=== PATIENT | male | born 1935 | race Caucasian/White ===

== ENCOUNTER → 2017-04-08 | Outpatient (CLI) | payer OTHER, BC ==
[~2017-04-08] VITALS: Ht 188 cm; Wt 100.7 kg
[~2017-04-08] MED LIST: ADVAIR HFA115 MCG/21 INH; AMIODARONE HCL100 MG PO; APAP500 PO; ASPIRIN81 M2 PO; ATORVASTATIN CA40 MG PO; CAPOTEN 25MG TA25 MG PO; CARVEDILOL25 MG PO; CELEBREX 200 M200 MG PO; CITRACAL SOFT1 EACH PO; COREG25 MG PO; COUMADIN 5 MG TA5 M1 PO; CRESTOR10 MG PO; DILTIAZEM 24HR240 M2 PO; FOLIC ACID1 MG PO; HYDROCODON-ACE1 EAC5 PO; KEPPRA250 MG PO; KLOR-CON 1010 MEQ PO; LASIX 20 MG TAB20 MG PO; MIRALAX17 GM PO; NABUMETONE 500500 M1 PO; NORCO 10-325 T1 EACH PO; NORCO 5-325 TA1 EACH PO; PLAVIX 75 MG TA75 M1 PO; PRESERVISION T1 EACH PO; PRILOSEC20 MG PO; SPIRIVA INH; SPIRONOLACTONE50 MG PO; TIMOLOL MA0.25 %/5 M OP; TRAMADOL 50 MG50 MG PO; VOLTAREN GEL 1100 G1 TOP; VYTORIN 10-201 EACH PO; VYTORIN 10-401 EACH PO
--- NOTE | ~2017-04-08 | HPC ---
[facility] [place] [address] PAIN MANAGEMENT CONSULTATION Name: HAHNTRIXIE HOWE Saba Room #: REG [facility] [id number] Admission: 04/08/17 Attend Phys: Jules Rocha DO Discharge: Date of : 34 Report #: [id number] THIS REPORT FOR: //name// CC: Mikey Rocha The patient is a very pleasant 81-year-old gentleman. He was seen in the pain clinic nearly 2 years ago, last contact was 07/14/2015. He has chronic lumbar stenosis with ongoing axial back pain. He had a prior MILD procedure back in September 2013 with really no efficacy. He had good relief with epidural injections in the past. He had an epidural injection in [place] with really no efficacy since I last saw him. He returns to the pain clinic noting pain remains problematic, rates his pain 6-7 on a 0-10 visual analog scale, low back, right greater than left leg. Notes standing exacerbates pain. Describes constant sharp pain. PHYSICAL EXAMINATION: Shows pleasant 81-year-old gentleman, BMI is 28.5 kilograms per meter squared. Blood pressure 124/80, pulse 80s, respirations 18. Rises from chair using armrest. Has a moderately antalgic gait. Lumbar flexion exacerbates pain. Slight decreased strength to hip flexion bilaterally, right greater than left. Positive straight leg raise bilaterally. He has ecchymosis around his arms compatible with prior blood thinner use, he is now off of his prior Coumadin. He has had a Watchman device placed in the left atrial appendage. Medications were reconciled today, he continues with Spiriva inhaler, timolol optic drops, carvedilol 25 mg daily, daily aspirin, omeprazole, Lasix 40 mg with potassium supplement, Advair inhaler and p.r.n. hydrocodone fairly rare use. No recent diagnostic studies are available. Last MRI was in 2011, has central stenosis at L4-L5, neural foraminal stenosis, left greater than right at L5-S1, large disk at L5-S1. ASSESSMENT: Symptomatic lumbar radiculopathy secondary to spinal stenosis, history of cervical radiculopathy, history of atrial fibrillation, though currently on no blood thinner, status post implantation of a Watchman device in the left atrial appendage. RECOMMENDATIONS: Epidural injection under fluoroscopy today. Follow up in 4 weeks to evaluate efficacy of interventional therapy. I talked about medication use. The patient uses hydrocodone perhaps 3 times a week. We suggest we consider using tramadol for moderate pain along with Tylenol for mild pain. Continue with hydrocodone perhaps 3 times a week as prescribed [place] [address] PAIN MANAGEMENT CONSULTATION Name: TRIXIE HAHN Room #: REG CLNazia Wolfe#: [id number] Admission: 04/08/17 Attend Phys: Jules Rocha DO Discharge: Date of : 34 Report #: [id number] PROCEDURE: Lumbar epidural injection under fluoroscopy. PROCEDURE NOTE: After both written and informed consent to include risk of spinal cord damage, increased pain, weakness and dural puncture, the patient was taken to the fluoroscopy suite, placed in the prone position. After sterile prep and drape, a skin wheal with lidocaine was raised. A 22-gauge epidural Tuohy needle was inserted in the midline at L5-S1 with good loss to resistance. Negative aspiration for cerebrospinal fluid or blood was noted. Then 1 mL of Omnipaque under biplanar fluoroscopy showed good spread within the epidural space. This was followed with 80 mg of triamcinolone plus 1 mL of 1.5% preservative-free Xylocaine, 0.5 mL Xylocaine was then injected to flush the needle; it was removed. The patient was monitored for an appropriate period of time and discharged in good and stable condition. <ELECTRONICALLY SIGNED> By: Jules Rocha DO 04/13/17 0758 [id number] Jules Rocha DO /nt
[2017-04-08 13:00] VITALS: BP 124/80
== END ==
LOC: PAIN 07:07
DX: M54.16 Radiculopathy, lumbar region (principal); M48.06 Spinal stenosis, lumbar region; M54.12 Radiculopathy, cervical region; I48.91 Unspecified atrial fibrillation; Z87.891 Personal history of nicotine dependence

== ENCOUNTER → 2017-06-09 | Outpatient (CLI) | payer OTHER, BC ==
[~2017-06-09] VITALS: Ht 182.9 cm; Wt 101.2 kg
[~2017-06-09] MED LIST changes: +PERCOCET 7.5-31 EACH PO
[2017-06-09 13:49] VITALS: BP 118/66
== END | disposition home or self-care (01) ==
LOC: PAIN 06:50
DX: M54.16 Radiculopathy, lumbar region (principal); M48.06 Spinal stenosis, lumbar region; I25.10 Atherosclerotic heart disease of native coronary artery without angina pectoris; Z98.890 Other specified postprocedural states; I21.3 ST elevation (STEMI) myocardial infarction of unspecified site; Z68.30 Body mass index [BMI] 30.0-30.9, adult; Z87.891 Personal history of nicotine dependence

== ENCOUNTER → 2017-07-11 | Outpatient (CLI) | payer OTHER, BC ==
[~2017-07-11] VITALS: Ht 188 cm; Wt 101.8 kg
--- NOTE | ~2017-07-11 | HPC ---
[facility] [address] [place] [address] PAIN MANAGEMENT CONSULTATION Name: TRIXIE HAHN Room #: [facility] [id number] Admission: 07/11/17 Attend Phys: Jules Rocha DO Discharge: Date of : 34 Report #: [id number] THIS REPORT FOR: //name// CC: Mikey Rocha The patient is an 81-year-old gentleman typically treated for symptomatic lumbar radiculopathy, axial back pain, he is status post lumbar decompressive laminectomy (mild procedure) with multiple comorbidities including significant coronary artery disease. He was seen today for a prolonged visit from 11:09-11:35, greater than 50% of this 25+ minute visit was spent counseling the patient. Last visit 06/09/2017, he had been taking hydrocodone 10/325 one tablet up to 4 times a day with dwindling efficacy, we trialed an opiate rotation to Percocet 7.5/325. He notes this really has afforded absolutely no change and no functional improvement. The patient notes that he takes opiate medication on a nondaily basis, typically takes a single hydrocodone before he goes to play golf or does other physical activities, perhaps taking 3 or 4 a week. He tells me today he would prefer to have Dr. Ramsey continue to write for that medication as it is simply a little more efficient for him. He does see Dr. Ramsey for other ongoing medical issues. Today, I again spent a prolonged visit with the patient and Mrs. Hahn. I think that the patient may be having a little early cognitive decline. We talked about therapeutic options. Last visit, we had also discussed spinal cord stimulator as possible therapeutic option. He seems to be a little confused about this latter issue and again I spent a good deal of time explaining it to him. He notes his primary pain is in the mid back, right side greater than left buttock and occasionally posterior leg to thigh. While he notes the pain is anywhere from a 4-6 on VAS, it does seem to exacerbate with standing, walking, and exercise. To his credit, he does do home exercises as instructed by [facility] where he had been going on a regular basis for about 3 weeks. He tells me that he does remain physically active, states he has a wood shop in his basement, though he has trouble going up and down stairs. He states he did attempt to work on the ____ on his brick stairs. Unfortunately, when he was finishing this project, he was backing up with a wheelbarrow, fell striking his low back with acute exacerbation of tailbone pain. The patient denies bowel or bladder continence changes. Notes following the fall landing on his coccyx, he did have exacerbation of back pain, but still [address] [address] PAIN MANAGEMENT CONSULTATION Name: TRIXIE HAHN Room #: REG CLNazia Wolfe#: [id number] Admission: 07/11/17 Attend Phys: Jules Rocha DO Discharge: Date of : 34 Report #: [id number] remains functionally intact. PHYSICAL EXAMINATION: Shows an 81-year-old gentleman, BMI is 28.8 kg/m2. A little bit hard of hearing. Vital signs are stable as noted on the electronic medical record. Rises from chair using armrest. He has an antalgic gait. He uses a cane in his right hand primarily for balance. He has a moderately endomorphic build. He is able to bend forward to about 80 degrees without significant pain. Point palpation over the posterior spinous processes from about mid thoracic down to the sacrum elicits a little bit of pain in the L5 tailbone area, though not concordant with what I would expect with an acute compression fracture. Lower extremity strength is generally symmetric. 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 ASSESSMENT: Symptomatic lumbar radiculopathy status post a mild decompression I believe about 2 years ago, ongoing axial back pain, requiring complex medication management with comorbidities including coronary artery disease status post three endovascular stents and an ejection fraction of 30-33%. He does take amiodarone, carvedilol and a daily aspirin, he is on no other blood thinners. He has some pulmonary disease, is treated with Spiriva inhaler and Advair inhaler. Dyslipidemia for which he takes atorvastatin, gastroesophageal reflux for which he takes omeprazole. Discussed therapeutic options with the patient today. Again, routine use of nonsteroidal anti-inflammatory medications relatively contraindicated with coronary artery disease and some gastroesophageal reflux. Having failed conservative therapies, we again talked about spinal cord stimulator as a possible therapeutic option. He understands I will talk to a psychologist about expectations, adequate understanding of the device, reasonable expectations and lack of "secondary gain." The patient was given contact information for a psychologist regarding this required evaluation prior to considering a spinal cord stimulator. Lastly, we talked about moving forward with p.r.n. opiate analgesics. The patient would prefer to take hydrocodone 10/325, again he takes it on a nondaily basis. I offered to write a prescription for him today, but he stated he would rather have Dr. Ramsey write it for ongoing continuity of care. I will see him simply on an as needed basis. At this point really I do not think further therapeutic interventions including epidural injections are likely to afford significant relief. If he is desirous of moving forward with the spinal cord stimulator trial, he will have to talk to a psychologist for the aforementioned psychological evaluation required by most third republican payers including Medicare. If we get that psychological evaluation back, we will move forward with a [employer] spinal cord stimulator trial. Otherwise, again follow up [facility] [address] [place] [address] PAIN MANAGEMENT CONSULTATION Name: TRIXIE HAHN Room #: REG CLI [facility].#: [id number] Admission: 07/11/17 Attend Phys: Jules Rocha DO Discharge: Date of : 34 Report #: [id number] simply as needed. Thank you for allowing me to participate in the patient's care. By: 1214 1411 Jules Rocha DO /olegario
[2017-07-11 11:06] VITALS: BP 118/94
== END | disposition home or self-care (01) ==
LOC: PAIN 07:18
DX: Z76.0 Encounter for issue of repeat prescription (principal); G89.29 Other chronic pain; M54.16 Radiculopathy, lumbar region; M54.9 Dorsalgia, unspecified; I25.10 Atherosclerotic heart disease of native coronary artery without angina pectoris; E78.5 Hyperlipidemia, unspecified; K21.9 Gastro-esophageal reflux disease without esophagitis; Z95.5 Presence of coronary angioplasty implant and graft; Z79.82 Long term (current) use of aspirin; Z98.890 Other specified postprocedural states; Z79.899 Other long term (current) drug therapy; Z79.891 Long term (current) use of opiate analgesic; Z87.891 Personal history of nicotine dependence; Z88.8 Allergy status to other drugs, medicaments and biological substances; Z88.0 Allergy status to penicillin

== ENCOUNTER → 2018-05-01 | Outpatient (CLI) | payer OTHER, BC ==
[~2018-05-01] VITALS: Ht 188 cm; Wt 99.8 kg
[~2018-05-01] MED LIST changes: +FLOMAX0.4 MG PO
--- NOTE | ~2018-05-01 | HPC ---
[facility] [address] [place] [address] PAIN MANAGEMENT CONSULTATION Name: TRIXIE HAHN Room #: REG [facility] Yaneth#: [id number] Admission: 05/01/18 Attend Phys: Jules Rocha, DO Discharge: Date of : 34 Report #: [id number] THIS REPORT FOR: //name// CC: Beth Rocha The patient is a very pleasant 82-year-old gentleman seen back in June. He has ongoing lumbar radiculopathy status post lumbar decompression (MILD procedure). Multiple comorbidities including significant coronary artery disease. The patient has done well with occasional epidural injections, but has ultimately started to lose efficacy. Last epidural injection March of 2017 really did not afford adequate relief. He is loathe to take opiate analgesics, taking hydrocodone 10/325 three to four a day with dwindling efficacy. We rotated Percocet 7.5/325 with no functional status changes. He had a long discussion back in the fall about spinal cord stimulator. The patient was given print video literature regarding this therapeutic modality. [place] the [place] of [place]. Recently returned. He did get a psychological evaluation as required by most third democrat payers, he was seen by Dr. Hernandez Tabor PsyD, licensed clinical psychologist. He found no obvious psychological impediments this patient moving forward with spinal cord stimulator. He returns to pain clinic today. We had a prolonged visit about therapeutic options. He notes he can stand for perhaps 10 minutes, walk for about 5-6 minutes before pain becomes problematic. Pain is in the low back, bilateral legs, chronic constant sharp pain, rating anywhere from 2-7 on a VAS. He has not fallen in the last 3 months, but states his functional status is continuing to dwindle. He had the aforementioned MILD procedure 08/20/2013 with really no change in symptoms. DIAGNOSTIC STUDIES: Include MRI, now somewhat dated from 2011, but noting central stenosis at multiple levels, L5-S1 lateral disk protrusion. We talked about risks, benefits of spinal cord stimulator and proposed mechanism of action. Having failed all conservative therapies and loathe to increase opiate analgesics, and being a poor surgical candidate due to coronary artery disease for aggressive spinal surgery, the patient would like to look into a spinal cord stimulator. He does have a pacemaker and a defibrillator as well as a WATCHMAN. We will contact [employer] to ensure that there is no [facility] [address] [place] [address] PAIN MANAGEMENT CONSULTATION Name: SELMATRIXIE Saba Room #: REG CLNazia Wolfe#: [id number] Admission: 05/01/18 Attend Phys: Jules Rocha DO Discharge: Date of : 34 Report #: [id number] contraindication, but the patient would very much like to move forward with spinal cord stimulator trial at earliest possible date. The patient and his were seen for approximately 30 minutes. All questions were answered. We will plan on moving forward with spinal cord stimulator at earliest possible date. <ELECTRONICALLY SIGNED> By: Jules Rocha DO 05/03/18 0740 [id number] [id number] Jules Rocha DO /nt
[2018-05-01 14:08] VITALS: BP 109/69
== END ==
LOC: PAIN 07:05
DX: M54.16 Radiculopathy, lumbar region (principal); M96.1 Postlaminectomy syndrome, not elsewhere classified

== ENCOUNTER → 2018-05-11 | Outpatient (CLI) | payer OTHER, BC ==
[~2018-05-11] VITALS: Ht 188 cm; Wt 100.2 kg
--- NOTE | ~2018-05-11 | HPC ---
[facility] [address] [place] [address] PAIN MANAGEMENT CONSULTATION Name: TRIXIE HAHN Saba [facility] #: [facility] [id number] Admission: 05/11/18 Attend Phys: Jules Rocha DO Discharge: Date of : 34 Report #: [id number] THIS REPORT FOR: //name// CC: Beth Rocha The patient is a very pleasant 82-year-old gentleman being treated for chronic axial back pain, lumbar radiculopathy, status post MILD procedure. Comorbidity includes coronary artery disease. The patient has failed all conservative therapies. We ultimately elected to proceed with spinal cord stimulator lead trial today with a [employer] stimulator. Risks and benefits have been explained to the patient. He presents to the pain clinic today in the company of his who is supportive. PHYSICAL EXAMINATION: Unchanged from presentation. ASSESSMENT: Symptomatic lumbar radiculopathy status post MILD procedure, ongoing axial back pain significantly impacting function. The patient states he can stand and walk less than 10 minutes without significant pain that interferes with function. PROCEDURES: 1. Right distal wrist intravenous access established (22 gauge angiocath). 2. Spinal cord stimulator lead trial times 2 (thoracic) with fluoroscopy. PROCEDURE NOTE: 1. After written informed consent was obtained, I sterilely placed a 22-gauge Angiocath in palmar aspect, distal right wrist. This was attached to normal saline infusion and the patient was given 250 mg of vancomycin. 2. Patient taken to the fluoroscopy suite, placed in the prone position. Prior, risks and benefits of spinal cord stimulator were again reviewed including paralysis, bleeding, and infection. The patient was placed in prone position with appropriate abdominal bolstering. Wide surgical prep and drape was accomplished. Skin wheal with Xylocaine was raised from a right paramedian approach over the L1/L2 intervertebral space. A stab incision with #11 scalpel was made. A 14-gauge epidural Tuohy needle was placed to enter the posterior interspinous ligament at T12/L1. Stylet was removed. Saline filled glass syringe was connected. With continuous plunger pressure and biplanar fluoroscopy, needle was easily advanced in the epidural space. A single 8-contact lead was advanced to the top of T6 in the posterior aspect of the epidural space, midline. [address] [address] PAIN MANAGEMENT CONSULTATION Name: SELMATRIXIE Walter Room #: REG [facility].#: [id number] Admission: 05/11/18 Attend Phys: Jules Rocha DO Discharge: Date of : 34 Report #: [id number] Attention was then directed at the left side, mirror image procedure was easily repeated from a left paramedian approach, this lead was placed to the top of T7. Again, AP and lateral projections showed good needle placement. Intraoperative stimulation captured back and legs for paresthesia coverage. With fluoroscopy identifying the tips of the leads, the stylets and needles were removed, tips remained intact. Leads were secured using mastic and Steri-Strips. Wide bolster dressing was accomplished. The patient was allowed to ambulate to the recovery room, monitored for an appropriate period of time. Stimulatory patterns were discussed with a [employer] rep (Jaron). The patient was given contact information for the hospital ([facility] physician contracts law professor) should he have any concerns with increased pain, weakness, fever, chills, etc. He has contact information for the [employer] rep regarding questions for stimulation. Plan on seeing the patient in 1 week for lead removal and evaluation. Fluoroscopy time was 1.16 seconds. <ELECTRONICALLY SIGNED> By: Jules Rocha DO 05/11/18 1242 [id number] Jules Rocha DO /nt
[2018-05-11 07:48] VITALS: BP 156/62
== END | disposition home or self-care (01) ==
LOC: PAIN 06:43
DX: Z46.2 Encounter for fitting and adjustment of other devices related to nervous system and special senses (principal); M54.16 Radiculopathy, lumbar region; G89.29 Other chronic pain; I25.10 Atherosclerotic heart disease of native coronary artery without angina pectoris; G47.33 Obstructive sleep apnea (adult) (pediatric); Z87.891 Personal history of nicotine dependence; Z88.0 Allergy status to penicillin; Z79.899 Other long term (current) drug therapy; Z88.8 Allergy status to other drugs, medicaments and biological substances; Z79.82 Long term (current) use of aspirin; Z98.890 Other specified postprocedural states

== ENCOUNTER → 2018-05-18 | Outpatient (CLI) | payer OTHER, BC ==
[~2018-05-18] VITALS: Ht 188 cm; Wt 102.5 kg
--- NOTE | ~2018-05-18 | HPC ---
[facility] [address] [place] [address] PAIN MANAGEMENT CONSULTATION Name: HAHNTRIXIE Saba Room #: REG [facility]#: [id number] Admission: 05/18/18 Attend Phys: Jules Rocha DO Discharge: Date of : 34 Report #: [id number] THIS REPORT FOR: //name// CC: Beth Rocha The patient is a very pleasant 82-year-old gentleman, seen last week for spinal cord stimulator trial for ongoing axial back and lumbar radicular pain secondary to spinal stenosis. The patient returns to pain clinic today noting he had a minimum 50% improvement in baseline pain. He is disappointed that he actually wanted more relief, but does note he is enthusiastic about moving forward with implant. He states he can stand for greater than 20 minutes before he could stand for about 5-10 minutes at most. Returns to pain clinic today, an 82-year-old gentleman, BMI is 29 kilograms per meter squared. Vital signs stable. Rises from chair using armrest. Gait is less antalgic. Lower extremity strength symmetric. ASSESSMENT: Symptomatic lumbar radiculopathy, axial back pain, spinal stenosis with dramatic improvement (greater than 50%) of both functional status and subjective pain with spinal cord stimulator trial. Today, we elected to remove the trial and refer the patient to Dr. Asher Victoria for consideration for permanent implantation of [employer] spinal cord stimulator paddle lead and generator. Lead was removed. The area was cleansed. Band-Aids were applied. Insertion site is unremarkable. No signs of inflammation, infection or induration. Vital signs are stable. No fevers or chills noted. Discharged in good and stable condition. Follow up simply as needed. <ELECTRONICALLY SIGNED> By: Jules Rocha DO 05/19/18 0822 1214 [id number] Jules Rocha DO /nt
[2018-05-18 09:03] VITALS: BP 125/66
== END ==
LOC: PAIN 06:52
DX: M48.061 Spinal stenosis, lumbar region without neurogenic claudication (principal); M54.16 Radiculopathy, lumbar region